=== PATIENT | male | born 1955 | race Caucasian/White ===

== ENCOUNTER 2018-08-29 01:24 | Emergency (ER) | payer BC ==
--- NOTE | 2018-08-29 01:36 | ED ---
ENT HPI - General Chief complaint: ENT Stated complaint: Feels like throat is closing up Time Seen by Provider: 08/29/18 01:34 Source: patient, family, RN notes reviewed, old records reviewed Mode of arrival: ambulatory Limitations: no limitations - History of Present Illness Initial comments: This is a 62-year-old male the ER for evaluation. Patient having difficulties swallowing talking, significant swelling. Patient is similar episode about 3 weeks ago which did resolve. Patient takes no medications no ZEN inhibitor's no history of angioedema. No shortness of breath currently just coming in for evaluation of swelling MD complaint: sore throat -: hour(s) Location: throat Severity: moderate Quality: aching Consistency: constant Improves with: none Worsens with: swallowing, movement Context-Epistaxis: history of similar - Related Data Allergies Allergy/AdvReac Type Severity Reaction Status Date / Time No Known Allergies Allergy Verified 08/29/18 01:31 Review of Systems ROS Statement: Those systems with pertinent positive or pertinent negative responses have been documented in the HPI. ROS Other: All systems not noted in ROS Statement are negative. Past Medical History Additional Past Medical History / Comment(s): back pain History of Any Multi-Drug Resistant Organisms: None Reported Past Surgical History: No Surgical Hx Reported Past Psychological History: No Psychological Hx Reported Smoking Status: Current every day smoker Past Alcohol Use History: None Reported Past Drug Use History: None Reported General Exam - General Exam Comments Initial Comments: Difficult to visualize oropharynx Limitations: no limitations General appearance: alert, in no apparent distress Head exam: Present: atraumatic, normocephalic, normal inspection Eye exam: Present: normal appearance, PERRL, EOMI. Absent: scleral icterus, conjunctival injection, periorbital swelling ENT exam: Present: normal exam, mucous membranes moist Neck exam: Present: normal inspection. Absent: tenderness, meningismus, lymphadenopathy Respiratory exam: Present: normal lung sounds bilaterally. Absent: respiratory distress, wheezes, rales, rhonchi, stridor Cardiovascular Exam: Present: regular rate, normal rhythm, normal heart sounds. Absent: systolic murmur, diastolic murmur, rubs, gallop, clicks GI/Abdominal exam: Present: soft, normal bowel sounds. Absent: distended, tenderness, guarding, rebound, rigid Extremities exam: Present: normal inspection, full ROM, normal capillary refill. Absent: tenderness, pedal edema, joint swelling, calf tenderness Back exam: Present: normal inspection Neurological exam: Present: alert, oriented X3, CN II-XII intact Psychiatric exam: Present: normal affect, normal mood Skin exam: Present: warm, dry, intact, normal color. Absent: rash Course Vital Signs 08/29/18 01:26 Temperature 74 F L Pulse Rate 73 Respiratory 20 Rate Blood Pressure 186/78 O2 Sat by Pulse 96 Oximetry - Reevaluation(s) Reevaluation #1: 08/29/18 03:23 Medical record reviewed Reevaluation #2: 08/29/18 03:23 Patient remains in no distress Reevaluation #3: 08/29/18 03:23 With ENT, Dr. Yee will see patient in office this week Medical Decision Making - Medical Decision Making 62 male the ER angioedema, patient will be discharged to follow-up with ENT regarding visualization of oropharynx. Is in no distress will return if swelling of lips or tongue develop. Patient can be discharged - Lab Data Result diagrams: 08/29/18 01:55 08/29/18 01:55 Lab Results 08/29/18 08/29/18 Range/Units 01:55 01:55 WBC 8.8 (3.8-10.6) k/uL RBC 4.56 (4.30-5.90) m/uL Hgb 14.3 (13.0-17.5) gm/dL Hct 42.3 (39.0-53.0) % MCV 92.7 (80.0-100.0) fL MCH 31.4 (25.0-35.0) pg MCHC 33.9 (31.0-37.0) g/dL RDW 14.2 (11.5-15.5) % Plt Count 211 (150-450) k/uL Neutrophils % 65 % Lymphocytes % 23 % Monocytes % 5 % Eosinophils % 4 % Basophils % 1 % Neutrophils # 5.8 (1.3-7.7) k/uL Lymphocytes # 2.0 (1.0-4.8) k/uL Monocytes # 0.5 (0-1.0) k/uL Eosinophils # 0.4 (0-0.7) k/uL Basophils # 0.1 (0-0.2) k/uL Sodium 140 (137-145) mmol/L Potassium 4.0 (3.5-5.1) mmol/L Chloride 110 H (98-107) mmol/L Carbon Dioxide 23 (22-30) mmol/L Anion Gap 7 mmol/L BUN 18 (9-20) mg/dL Creatinine 0.77 (0.66-1.25) mg/dL Est GFR (CKD-EPI)AfAm >90 (>60 ml/min/1.73 sqM) Est GFR (CKD-EPI)NonAf >90 (>60 ml/min/1.73 sqM) Glucose 114 H (74-99) mg/dL Calcium 9.0 (8.4-10.2) mg/dL Phosphorus 3.9 (2.5-4.5) mg/dL Magnesium 2.0 (1.6-2.3) mg/dL Total Bilirubin 0.2 (0.2-1.3) mg/dL AST 16 L (17-59) U/L ALT 14 L (21-72) U/L Alkaline Phosphatase 123 (38-126) U/L Total Protein 6.9 (6.3-8.2) g/dL Albumin 4.0 (3.5-5.0) g/dL - Radiology Data Radiology results: report reviewed (CT of soft tissue neck does show likely mass and swelling of the oropharynx angioedema versus mass), image reviewed Disposition Clinical Impression: Angioedema Disposition: HOME SELF-CARE Condition: Good Instructions (If sedation given, give patient instructions): Angioedema (ED) Is patient prescribed a controlled substance at d/c from ED?: No Referrals: Jonathan Goel MD [Primary Care Provider] - 1-2 days
[2018-08-29] MEDS ORDERED: methylPREDNISolone SOD SUCCI 125 MG/2 ML VIAL IV STA (01:40)
[2018-08-29] MEDS ORDERED: SODIUM CHLORIDE 0.9% 1,000 ML IV STA (01:40)
[2018-08-29] MEDS ORDERED: FAMOTIDINE 20 MG/2 ML VIAL IV STA (01:40)
[2018-08-29] MEDS ORDERED: diphenhydrAMINE 50 MG/ML 1 ML VIAL IVP STA (01:40)
[2018-08-29 02:06] LABS: Basophils # (A) 0.1 k/uL (0-0.2); Basophils % (A) 1 %; Eosinophils # (A) 0.4 k/uL (0-0.7); Eosinophils % (A) 4 %; HCT 42.3 % (39.0-53.0); HGB 14.3 gm/dL (13.0-17.5); Lymphocytes % (A) 23 %; MCH 31.4 pg (25.0-35.0); MCHC 33.9 g/dL (31.0-37.0); MCV 92.7 fL (80.0-100.0); Mean Platelet Volume 9.1; Monocytes # (A) 0.5 k/uL (0-1.0); Monocytes % (A) 5 %; Neutrophils # (A) 5.8 k/uL (1.3-7.7); Neutrophils % (A) 65 %; Platelet Count 211 k/uL (150-450); RBC 4.56 m/uL (4.30-5.90); RDW 14.2 % (11.5-15.5); WBC 8.8 k/uL (3.8-10.6)
[2018-08-29 02:15] LABS: ALT 14 U/L (21-72); AST 16 U/L (17-59); Alkaline Phosphatase 123 U/L (38-126); Anion Gap 7 mmol/L; Blood Urea Nitrogen 18 mg/dL (9-20); Carbon Dioxide 23 mmol/L (22-30); Chloride 110 mmol/L (98-107); Glucose 114 mg/dL (74-99); Phosphorus 3.9 mg/dL (2.5-4.5); Sodium 140 mmol/L (137-145); Total Bilirubin 0.2 mg/dL (0.2-1.3); Total Protein 6.9 g/dL (6.3-8.2)
--- NOTE | 2018-08-29 02:42 | CT ---
EXAM: CT Neck With Intravenous Contrast CLINICAL HISTORY: ITS.REASON CT Reason: Pain TECHNIQUE: Axial computed tomography images of the neck with intravenous contrast. CTDI is 11.2 mGy and DLP is 441.3 mGy-cm. This CT exam was performed using one or more of the following dose reduction techniques: automated exposure control, adjustment of the mA and/or kV according to patient size, and/or use of iterative reconstruction technique. Coronal and sagittal reformatted images were created and reviewed. COMPARISON: No relevant prior studies available. FINDINGS: Nasopharynx: See below. Oropharynx: There is edema and thickening at the level of the nasopharynx/oropharynx junction on the right extending inferiorly to the level of the epiglottis. At the level of the epiglottis there is a 14 x 20.6 mm hypodense lesion with mass effect on the aryepiglottic folds and epiglottis. A 22.4 x 9.6 mm lesion is seen in the right aspect of the vallecula possible involvement lingual tonsils. At the level of the oropharynx, this overall area of fullness and edema seems to encapsulate the right palatine tonsil with a posterior component measuring 15.4 x 4.7 mm. Some possibilities include an extensive pharyngeal mucosal mass. Other possibilities include angioedema if there is acute onset. Consider direct visualization. Additional focal area of hypodensity seen on the left measuring 11.4 x 3.4 mm at the level of the oropharynx. Hypopharynx: Unremarkable. Larynx: The epiglottis is not thickened. The glottic airway appears intact and patent. Trachea: Unremarkable. Retropharyngeal space: Unremarkable. Submandibular/parotid glands: Unremarkable. Glands are normal in size. Thyroid: Right thyroid 6.9 mm calcification. Bones/joints: No acute fracture. Soft tissues: See above. Vasculature: No acute findings. Lymph nodes: Unremarkable. No lymphadenopathy. Lung apices: The visualized lung apices demonstrate hypoventilation. IMPRESSION: 1. There is edema and thickening at the level of the inferior nasopharynx on the right extending inferiorly to the level of the epiglottis. At the level of the epiglottis there is a 14 x 20.6 mm hypodense lesion with mass effect on the aryepiglottic folds and epiglottis. A 22.4 x 9.6 mm lesion is seen in the right aspect of the vallecula possible involvement lingual tonsils. At the level of the oropharynx this overall area of fullness and edema seems to encapsulate the right palatine tonsil with a posterior component measuring 15.4 x 4.7 mm. Some possibilities include an extensive pharyngeal mucosal mass. Other possibilities include angioedema if there is acute onset. Consider direct visualization. 2. Additional focal area of hypodensity seen on the left measuring 11.4 x 3.4 mm at the level of the oropharynx. 3. The visualized lung apices demonstrate hypoventilation.
[2018-08-29] MEDS ORDERED: DEXAMETHASONE SOD PHOSPHATE 10 MG/ML 1 ML VIAL IV STA (03:21)
[2018-08-29 03:46] VITALS: BP 178/93; PULSE 79; RESP 19; TEMP 98.1
== END 2018-08-29 03:47 | disposition home or self-care (01) ==
LOC: EC 01:24
DX: T78.3XXA Angioneurotic edema, initial encounter (principal); F17.200 Nicotine dependence, unspecified, uncomplicated
CPT/HCPCS: 36415; 80053; 83735; 84100; 85025; 70491; 99284; 96374; 96375 ×3; 96361 ×2; J1200; J1100; J2930; Q9967

== ENCOUNTER 2018-09-16 01:14 | Emergency (ER) | payer BC ==
[2018-09-16] MEDS ORDERED: diphenhydrAMINE 50 MG/ML 1 ML VIAL IVP STA (01:52)
[2018-09-16] MEDS ORDERED: FAMOTIDINE 20 MG/2 ML VIAL IV STA (01:52)
[2018-09-16] MEDS ORDERED: methylPREDNISolone SOD SUCCI 125 MG/2 ML VIAL IV STA (01:52)
[2018-09-16] MEDS ORDERED: SODIUM CHLORIDE 0.9% 1,000 ML IV ONE (01:53)
--- NOTE | 2018-09-16 04:31 | ED ---
General Adult HPI - General Source: patient Mode of arrival: ambulatory Limitations: no limitations <Sadie Guillaume - Last Filed: 09/16/18 18:18> <Ruchi Baron - Last Filed: 09/16/18 22:11> - General Chief complaint: Headache Stated complaint: Facial Swelling Time Seen by Provider: 09/16/18 01:46 - History of Present Illness Initial comments: 62-year-old male who denies any medication use presents today for chief complaint of left-sided facial swelling. Patient states that for the past month he has had on and off swelling from known reason. He states he was told he had angioedema. Patient denies any lisinopril or ZEN inhibitor use. Patient states he does not take medications daily. Patient states the last time he presented he felt like his throat closing. Patient denies any feeling that his throat was closing he denies any tongue swelling or rash. He states the left side of his lower lip is swollen. He denies any stridor or wheezing. He denies any chest pain shortness breath diarrhea vomiting. Patient denies ingestion of shellfish peanuts. He states he has had extensive ALLERGY testing outpatient which only returned ALLERGY to [place] cockroaches. Patient states that the symptoms resolved last time with benadryl and steroids. Patient recently finished a taper of steroids. Patient states that the symptoms began around 9PM this evening. Patient states he has follow-up for previous CT findings with ENT. Remaining ROS (-). (Sadie Guillaume) - Related Data Previous Rx's Medication Instructions Recorded predniSONE 20 mg PO BID 5 Days #10 tab 09/16/18 Allergies Allergy/AdvReac Type Severity Reaction Status Date / Time No Known Allergies Allergy Verified 08/29/18 01:31 Review of Systems ROS Other: All systems not noted in ROS Statement are negative. <Sadie Guillaume - Last Filed: 09/16/18 18:18> ROS Other: All systems not noted in ROS Statement are negative. <Ruchi Baron - Last Filed: 09/16/18 22:11> ROS Statement: Those systems with pertinent positive or pertinent negative responses have been documented in the HPI. Past Medical History Additional Past Medical History / Comment(s): back pain History of Any Multi-Drug Resistant Organisms: None Reported Past Surgical History: No Surgical Hx Reported Past Psychological History: No Psychological Hx Reported Smoking Status: Current every day smoker Past Alcohol Use History: None Reported Past Drug Use History: None Reported <Sadie Guillaume - Last Filed: 09/16/18 18:18> General Exam Limitations: no limitations <AundreaSadie Molina - Last Filed: 09/16/18 18:18> - General Exam Comments Initial Comments: General: The patient is awake and alert, in no distress, and does not appear acutely ill. Eye: +3 mm pupils are equal, round and reactive to light, extra-ocular movements are intact. No nystagmus. There is normal conjunctiva bilaterally. No signs of icterus. Ears, nose, mouth and throat: There are moist mucous membranes. Soft palate is visible. No tongue swelling no swelling below tongue. Soft tissue swelling on the lateral aspect of the soft tissues of the mouth and the lower lip. No oral lesions. Uvula midline. Neck: The neck is supple, there is no tenderness or JVD. Cardiovascular: There is a regular rate and rhythm. No murmur, rub or gallop is appreciated. Respiratory: Lungs are clear to auscultation, respirations are non-labored, breath sounds are equal. No wheezes, stridor, rales, or rhonchi. Gastrointestinal: Soft, non-distended, non-tender abdomen without masses or organomegaly noted. There is no rebound or guarding present. No CVA tenderness. Bowel sounds are unremarkable. Musculoskeletal: Normal ROM, no tenderness. Strength 5/5. Sensation intact. Pulses equal bilaterally 2+. Neurological: A&O x 3. CN II-XII intact, There are no obvious motor or sensory deficits. Coordination appears grossly intact. Speech is normal. Skin: Skin is warm and dry and no rashes or lesions are noted. Psychiatric: Cooperative, appropriate mood & affect, normal judgment. (Sadie Guillaume) Course Vital Signs 09/16/18 09/16/18 01:38 04:41 Temperature 98.6 F 98.7 F Pulse Rate 65 66 Respiratory 20 16 Rate Blood Pressure 150/80 133/68 O2 Sat by Pulse 97 95 Oximetry Medical Decision Making <Sadie Guillaume - Last Filed: 09/16/18 18:18> <Ruhci Baron - Last Filed: 06/15/19 22:11> - Medical Decision Making 62-year-old male presenting for splint left-sided his face. Physical examination findings concerning for angioedema. Patient did not complain her. Any sort of respiratory distress. No swelling of the tongue. Her sensation of swelling of the oropharynx. No stridor. Visible soft palate. Patient has no rash. She given Pepcid Solu-Medrol Benadryl. Upon multiple re-evaluations p atient's eye was gradually decreasing. Patient was evaluated in person by my attending provider Dr. Baron. Patient's dwelling almost completely alleviated. Patient provided outpatient prescription for steroids. He is requesting discharge. Patient was evaluated by more time by attending provider Dr. Baron. No signs of respiratory distress. No stridor swelling decreasing. Patient was discharged with instruction for PCP and ENT f/u. She is agreeable to plan discharge at this time. Return parameters included immediate return to emergency department for a swelling of the face or LYDIA, rash. Etiology of angioedema is on certain at this time. Patient has undergone extensive ALLERGY testing. Results were provided at the emergency department today. I discussed autoimmune testing with patient to obtain on outpatient basis. (Sadie Guillaume) Sinus on evaluated the patient upon arrival patient had angioedema of the left side of his lips as well as left buccal mucosa. Patient was treated with Pepcid, Solu-Medrol and Benadryl. Upon reevaluation the patient was sleeping comfortably his swelling had improved significantly. I did discuss with the patient the need to follow up with entry level account executive for further testing of possible C1 esterase deficiency or hereditary angioedema. Patient and at bedside expressed understanding of this and agreement with plan for outpatient follow- up. Return parameters were discussed of questions pertaining care were answered the patient was discharged home in stable condition. (Ruchi Baron) Disposition Is patient prescribed a controlled substance at d/c from ED?: No Time of Disposition: 04:30 <Sadie Guillaume - Last Filed: 09/16/18 18:18> <Ruchi Baron - Last Filed: 09/16/18 22:11> Clinical Impression: Angioedema, Facial swelling Disposition: HOME SELF-CARE Condition: Good Instructions (If sedation given, give patient instructions): Angioedema (ED) Additional Instructions: Please use medication as discussed. Please follow-up with family doctor in the next 2 days and ENT as discussed. Please return to emergency room if the symptoms increase or worsen or for any other concerns. Prescriptions: predniSONE 20 mg PO BID 5 Days #10 tab Referrals: Jonathan Goel MD [Primary Care Provider] - 1-2 days
[2018-09-16 04:42] VITALS: BP 133/68; PULSE 66; RESP 16; TEMP 98.7
== END 2018-09-16 04:45 | disposition home or self-care (01) ==
LOC: EC 01:14
DX: T78.3XXA Angioneurotic edema, initial encounter (principal); R51 Headache; F17.200 Nicotine dependence, unspecified, uncomplicated
CPT/HCPCS: 99283; 96374; 96375 ×2; 96361; J1200; J2930

== ENCOUNTER 2022-03-04 09:29 | Emergency (ER) | payer BC, MEDICARE ==
[2022-03-04 09:41] VITALS: TEMP 98.4
--- NOTE | 2022-03-04 10:48 | ED ---
General Adult HPI - General Chief complaint: Shortness of Breath Stated complaint: SOB Time Seen by Provider: 03/04/22 10:15 Source: patient Mode of arrival: ambulatory Limitations: no limitations - History of Present Illness Initial comments: Dictation was produced using [email or web address] dictation software. please excuse any grammatical, word or spelling errors. Chief Complaint: 66-year-old male with known history of A. fib presents to the E R for declining health status for several months History of Present Illness: Patient is 66-year-old male presents to the emergency department. He states that he is been slowly declining physically o eufemia the last several months. Patient is diagnosed with atrial fibrillation last year he was told to start taking liquids however he restarted the medications. States that he did not want do this because he did not want to quit smoking it and felt like if he was given a continue to use tobacco that he wasn't definitive start taking liquids. Patient states that over the last several months he's been having decreasing weakness. The weakness has gotten so severe that he is unable to perform his activities of daily living which include doing house chores and walking for long distances. The ROS documented in this emergency department record has been reviewed and confirmed by me. Those systems with pertinent positive or negative responses have been documented in the HPI. All other systems are other negative and/or noncontributory. PHYSICAL EXAM: General Impression: Alert and oriented x3, not in acute distress HEENT: Normocephalic atraumatic, extra-ocular movements intact, pupils equal and reactive to light bilaterally, mucous membranes moist. Cardiovascular: Heart regular rate and rhythm Chest: Able to complete full sentences, no retractions, no tachypnea Abdomen: abdomen soft, non-tender, non-distended, no organomegaly Musculoskeletal: Pulses present and equal in all extremities, no peripheral edema Motor: no focal deficits noted Neurological: CN II-XII grossly intact, no focal motor or sensory deficits noted Skin: Intact with no visualized rashes Psych: Normal affect and mood ED course: 6-year-old well-appearing male presents emergency department for worsening chronic decrease in physical functionality. vital signs upon arrival are within acceptable limits. Nursing notes and chart review was performed Laboratory evaluation obtained. CBC, coag panel, metabolic panel is unremarkable. Troponin is negative. TSH is slightly elevated. 4 panel viral PCR is negative. Chest x-rays negative. Patient observed in emergency department for 3 hours and 50 minutes. Reevaluated at bedside at 1:20 PM found in stable medical condition. Patient will be given prescription for eliquis and metoprolol that he is advised to take there is told to follow-up with cardiology and primary care doctor. My EKG interpretation: Ventricular rate 94, A. fib, QS 109, QTc 47. No SD prolongation, no QTC prolongation, no ST or T-wave changes noted. Overall, this EKG is unremarkable Critical Care: yes Critical Care time: 33 minutes - Related Data Previous Rx's Medication Instructions Recorded Apixaban [Eliquis Starter Pack 5 - 10 mg PO DIRECTED 30 Days 03/04/22 (for VTE)] #1 each Metoprolol Tartrate [Lopressor] 12.5 mg PO BID 30 Days #60 tablet 03/04/22 Allergies Allergy/AdvReac Type Severity Reaction Status Date / Time No Known Allergies Allergy Verified 03/04/22 11:08 Review of Systems ROS Statement: Those systems with pertinent positive or pertinent negative responses have been documented in the HPI. ROS Other: All systems not noted in ROS Statement are negative. Past Medical History Additional Past Medical History / Comment(s): back pain History of Any Multi-Drug Resistant Organisms: None Reported Past Surgical History: No Surgical Hx Reported Past Psychological History: No Psychological Hx Reported Past Alcohol Use History: None Reported Past Drug Use History: None Reported General Exam Limitations: no limitations Course Vital Signs 03/04/22 03/04/22 03/04/22 09:38 10:30 11:00 Temperature 98.4 F Pulse Rate 103 H 107 H 76 Respiratory 20 18 18 Rate Blood Pressure 164/85 193/105 166/90 O2 Sat by Pulse 95 98 95 Oximetry Medical Decision Making - Lab Data Result diagrams: 03/04/22 12:22 03/04/22 10:43 Lab Results 03/04/22 03/04/22 03/04/22 Range/Units 10:43 10:43 10:43 WBC (3.8-10.6) k/uL RBC (4.30-5.90) m/uL Hgb (13.0-17.5) gm/dL Hct (39.0-53.0) % MCV (80.0-100.0) fL MCH (25.0-35.0) pg MCHC (31.0-37.0) g/dL RDW (11.5-15.5) % Plt Count (150-450) k/uL MPV Neutrophils % % Lymphocytes % % Monocytes % % Eosinophils % % Basophils % % Neutrophils # (1.3-7.7) k/uL Lymphocytes # (1.0-4.8) k/uL Monocytes # (0-1.0) k/uL Eosinophils # (0-0.7) k/uL Basophils # (0-0.2) k/uL PT 11.0 (9.0-12.0) sec INR 1.1 (<1.2) APTT 24.2 (22.0-30.0) sec Sodium 139 (137-145) mmol/L Potassium 4.4 (3.5-5.1) mmol/L Chloride 105 (98-107) mmol/L Carbon Dioxide 25 (22-30) mmol/L Anion Gap 9 mmol/L BUN 18 (9-20) mg/dL Creatinine 0.96 (0.66-1.25) mg/dL Est GFR (CKD-EPI)AfAm >90 (>60 ml/min/1.73 sqM) Est GFR (CKD-EPI)NonAf 83 (>60 ml/min/1.73 sqM) Glucose 101 H (74-99) mg/dL Calcium 8.6 (8.4-10.2) mg/dL Total Bilirubin 0.6 (0.2-1.3) mg/dL AST 23 (17-59) U/L ALT 23 (4-49) U/L Alkaline Phosphatase 130 H (38-126) U/L Troponin I <0.012 (0.000-0.034) ng/mL Total Protein 7.2 (6.3-8.2) g/dL Albumin 4.5 (3.5-5.0) g/dL TSH 4.940 H (0.465-4.680) mIU/L Influenza Type A (PCR) (Not Detectd) Influenza Type B (PCR) (Not Detectd) RSV (PCR) (Not Detectd) SARS-CoV-2 (PCR) (Not Detectd) 03/04/22 03/04/22 Range/Units 10:43 12:22 WBC 6.7 (3.8-10.6) k/uL RBC 4.66 (4.30-5.90) m/uL Hgb 14.7 (13.0-17.5) gm/dL Hct 41.8 (39.0-53.0) % MCV 89.5 (80.0-100.0) fL MCH 31.4 (25.0-35.0) pg MCHC 35.1 (31.0-37.0) g/dL RDW 13.4 (11.5-15.5) % Plt Count 200 (150-450) k/uL MPV 8.3 Neutrophils % 71 % Lymphocytes % 20 % Monocytes % 6 % Eosinophils % 2 % Basophils % 1 % Neutrophils # 4.7 (1.3-7.7) k/uL Lymphocytes # 1.3 (1.0-4.8) k/uL Monocytes # 0.4 (0-1.0) k/uL Eosinophils # 0.1 (0-0.7) k/uL Basophils # 0.1 (0-0.2) k/uL PT (9.0-12.0) sec INR (<1.2) APTT (22.0-30.0) sec Sodium (137-145) mmol/L Potassium (3.5-5.1) mmol/L Chloride (98-107) mmol/L Carbon Dioxide (22-30) mmol/L Anion Gap mmol/L BUN (9-20) mg/dL Creatinine (0.66-1.25) mg/dL Est GFR (CKD-EPI)AfAm (>60 ml/min/1.73 sqM) Est GFR (CKD-EPI)NonAf (>60 ml/min/1.73 sqM) Glucose (74-99) mg/dL Calcium (8.4-10.2) mg/dL Total Bilirubin (0.2-1.3) mg/dL AST (17-59) U/L ALT (4-49) U/L Alkaline Phosphatase (38-126) U/L Troponin I (0.000-0.034) ng/mL Total Protein (6.3-8.2) g/dL Albumin (3.5-5.0) g/dL TSH (0.465-4.680) mIU/L Influenza Type A (PCR) Not Detected (Not Detectd) Influenza Type B (PCR) Not Detected (Not Detectd) RSV (PCR) Not Detected (Not Detectd) SARS-CoV-2 (PCR) Not Detected (Not Detectd) Disposition Clinical Impression: Afib Disposition: HOME SELF-CARE Condition: Good Instructions (If sedation given, give patient instructions): A-fib (Atrial Fibrillation) (ED) Prescriptions: Apixaban [Eliquis Starter Pack (for VTE)] 5 - 10 mg PO DIRECTED 30 Days #1 each Metoprolol Tartrate [Lopressor] 12.5 mg PO BID 30 Days #60 tablet Is patient prescribed a controlled substance at d/c from ED?: No Referrals: Jonathan Goel MD [Primary Care Provider] - 1-2 days Lakhwinder Ridley DO [STAFF PHYSICIAN] - 1-2 days Forms: [employer] Time of Disposition: 13:21
--- NOTE | 2022-03-04 10:49 | XR ---
EXAMINATION TYPE: XR chest 2V DATE OF EXAM: 03/04/2022 COMPARISON: None HISTORY: 66 year-old male shortness of breath, difficulty breathing TECHNIQUE: PA and lateral views FINDINGS: The cardiomediastinal silhouette, aorta, and pulmonary vasculature are within normal limits. Lungs an d pleural spaces are clear. IMPRESSION: No acute cardiopulmonary process.
[2022-03-04 11:07] LABS: INR 1.1 (<1.2); Partial Thromboplastin Time 24.2 sec (22.0-30.0)
[2022-03-04 11:19] LABS: ALT 23 U/L (4-49); AST 23 U/L (17-59); African American GFR (CKD) >90 (>60 ml/min/1.73 sqM); Albumin 4.5 g/dL (3.5-5.0); Alkaline Phosphatase 130 U/L (38-126); Anion Gap 9 mmol/L; Blood Urea Nitrogen 18 mg/dL (9-20); Calcium 8.6 mg/dL (8.4-10.2); Carbon Dioxide 25 mmol/L (22-30); Chloride 105 mmol/L (98-107); Glucose 101 mg/dL (74-99); Non-African American GFR(CKD) 83 (>60 ml/min/1.73 sqM); Potassium 4.4 mmol/L (3.5-5.1); Sodium 139 mmol/L (137-145); Total Bilirubin 0.6 mg/dL (0.2-1.3); Total Protein 7.2 g/dL (6.3-8.2)
[2022-03-04 12:36] LABS: Basophils # (A) 0.1 k/uL (0-0.2); Basophils % (A) 1 %; Eosinophils # (A) 0.1 k/uL (0-0.7); Eosinophils % (A) 2 %; HCT 41.8 % (39.0-53.0); HGB 14.7 gm/dL (13.0-17.5); Lymphocytes # (A) 1.3 k/uL (1.0-4.8); Lymphocytes % (A) 20 %; MCH 31.4 pg (25.0-35.0); MCHC 35.1 g/dL (31.0-37.0); MCV 89.5 fL (80.0-100.0); Mean Platelet Volume 8.3; Monocytes # (A) 0.4 k/uL (0-1.0); Monocytes % (A) 6 %; Neutrophils # (A) 4.7 k/uL (1.3-7.7); Neutrophils % (A) 71 %; Platelet Count 200 k/uL (150-450); RBC 4.66 m/uL (4.30-5.90); RDW 13.4 % (11.5-15.5); WBC 6.7 k/uL (3.8-10.6)
[2022-03-04 13:29] VITALS: BP 140/100; PULSE 100; RESP 20
== END 2022-03-04 13:43 | disposition home or self-care (01) ==
LOC: EC 09:29
DX: I48.91 Unspecified atrial fibrillation (principal); Z20.822 Contact with and (suspected) exposure to COVID-19
CPT/HCPCS: 36415; 71046; 80053; 84443; 84484; 85025; 85610; 85730; 87636; 93005; 99285

== ENCOUNTER → 2024-07-24 | Outpatient (CLI) | payer MEDICARE ==
[2024-07-24 16:25] LABS: African American GFR (CKD) >90 (>60 ml/min/1.73 sqM); Blood Urea Nitrogen 17 mg/dL (9-20); Non-African American GFR(CKD) 81 (>60 ml/min/1.73 sqM)
--- NOTE | 2024-07-24 17:31 | CT ---
EXAMINATION TYPE: CT abdomen pelvis w con CT DLP: 2643.2 mGycm, Automated exposure control for dose reduction was used. DATE OF EXAM: 07/24/2024 5:12 PM COMPARISON: None CLINICAL INDICATION:Male, 68 years old with history of R19.15 OTHER ABNORMAL BOWEL SOUNDS; abnormal b owel sounds TECHNIQUE: Standard CT of the abdomen and pelvis following the administration of 100 cc of Isovue 3 00 IV contrast material. Coronal and sagittal reformats were performed. FINDINGS: LOWER CHEST: Unremarkable ABDOMEN LIVER: Diffusely hypoattenuating parenchyma. No focal lesion. GALLBLADDER AND BILE DUCTS: Unremarkable. PANCREAS: Unremarkable. SPLEEN: Unremarkable. ADRENAL GLANDS: Unremarkable. KIDNEYS AND URETERS: No evidence of hydronephrosis or renal calculus. The kidneys enhance symmetrical ly. Contrast is demonstrated within both collecting systems and proximal ureters on the delayed phase . PELVIS BLADDER: Unremarkable REPRODUCTIVE: Unremarkable. ABDOMEN & PELVIS STOMACH AND BOWEL: Stomach and duodenum are unremarkable. The appendix is within normal limits. There is circumferential wall thickening with fat stranding in diverticula involving the sigmoid colon. No surrounding organized fluid collection. No evidence of bowel obstruction. PERITONEUM: No evidence of pneumoperitoneum or free fluid. VASCULATURE: Moderate atherosclerotic calcifications are present throughout the abdominal aorta and i ts branches. No evidence of aortic aneurysm. MUSCULOSKELETAL: No acute osseous abnormalities. Multilevel degenerative disc disease. Most pronounce d at L4-L5 and L5-S1. LYMPH NODES: No evidence for lymphadenopathy. SOFT TISSUE/ABDOMINAL WALL: Unremarkable IMPRESSION: Acute uncomplicated sigmoid diverticulitis. [facility], , 07/24/2024 5:28 PM
== END | disposition home or self-care (01) ==
LOC: RADCTMAIN 15:43
PROVIDERS: ATTEND Family Medicine
DX: K57.32 Diverticulitis of large intestine without perforation or abscess without bleeding (principal); K56.609 Unspecified intestinal obstruction, unspecified as to partial versus complete obstruction
CPT/HCPCS: 82565; 84520; 74177; 36415; Q9967